=== PATIENT | male | born 1950 | race Caucasian/White ===

== ENCOUNTER 2017-02-07 08:41 | Inpatient (IN) ==
--- NOTE | 2017-02-07 12:21 | Vascular/Endovascular H&P ---
Date of Encounter: 02/07/17 Time of Encounter: 12:00 Assessment and Plan (1) PAD (peripheral artery disease) Current Visit: Yes Status: Acute Patient has severe ischemia of of the left lower extremity that is limb threatening. Plan on urgent bypass graft of left lower extremity and possible thrombectomy of left lower extremity later this afternoon. The potential risks and benefits. Locations and alternatives were reviewed with the patient has . They agreed to proceed. (2) HTN (hypertension) Current Visit: Yes Status: Chronic Patient is under medical treatment for hypertension. Qualifiers: Hypertension type: essential hypertension Qualified Code(s): I10 - Essential (primary) hypertension (3) Tobacco abuse Current Visit: Yes Status: Chronic Patient is on nicotine patches for tobacco abuse. History of Present Illness Chief complaint: Left lower extremity pain HPI: Mr. Downing is a 66 year old male Admitted today for urgent surgery. The patient had originally admitted to my clinic on January 10. He presented with a 6 week history of left calf pain. The patient has been particularly affected as well with pain in the left foot and in the toes. He is also noticed discoloration of the forefoot and toes. He has not had any previous vascular interventions or history of vascular surgery. He has no history of trauma to the left lower extremity. He has significant risk factors of tobacco abuse and hypertension. The patient has been smoking since age 20. The patient had undergone noninvasive testing in early December. This demonstrated an ankle-brachial index of only 0.56 on the left and 1.19 on the right. Patient denies any history of chest pain or chest pressure or arrhythmias. Past Med Surg Social Fam HX - Past Medical History Medical history: hypertension, peripheral artery disease Psychiatric history: no psych history - Past Surgical History Surgical History: no surgical history, other (Patient is status post aortogram with runoff and attempted left superficial femoral artery [employer] angioplasty last Tuesday.) - Social History Smoking Status: Current every day smoker Packs per day: 1 pack per day Smokeless Tobacco Status: No Alcohol use: none Drug use: none Current living situation: Home Activity Level: Independent ambulation Medications and Allergies Ammonium Lactate [Amlactin] 1 each TP BID 02/04/17 [History] Losartan/Hydrochlorothiazide [Hyzaar 100-25 Tablet] 50 mg PO DAILY 02/04/17 [ History] amLODIPine [Norvasc] 5 mg PO BID 02/04/17 [History] 3 Allergy/AdvReac Type Severity Reaction Status Date / Time No Known Allergies Allergy Verified 02/04/17 12:00 All Systems Review: A 10-system review of systems was performed and is negative for pertinent findings except as documented above in the HPI. Exam Vital Signs, Last 4 Hours Temp Pulse Resp BP Pulse Ox 02/07/17 11:40 98.9 F 105 20 174/94 94 General: Present: Conversant, No Apparent Distress, Well developed, Well nourished HEENT: Present: Atraumatic, Normocephaly, Trachea midline Neck: Absent: JVD, Left Carotid bruit, Right Carotid bruit, Midline deformity, Tracheal deviation, Thyromegaly Cardiac: Present: Reg Rate and Rhythm, Normal S1 and S2, No Murmur Lungs: Present: Normal Breath Sounds Neuro: Present: Alert and responsive, No focal deficits noted, Cranial nerves grossly intact Abdomen: Present: Soft, Non-tender. Absent: Masses Vascular: Present: Capillary refill delayed (Diminished capillary refill of left foot), Pulse, absent (No left popliteal or ankle pulse.), Pulse, normal ( Normal right lower extremity evaluation.), Cyanosis (Patient has cyanosis of the left forefoot and toes.), Color/Temperature (Left foot and toes are cool to cold.) Skin: Present: No rashes noted on visualized skin
[2017-02-07] MEDS ORDERED: ceFAZolin 2,000 MG in D5% in Water (Mini-Bag+) 100 ML IVPB ONE (12:28)
[2017-02-07] MEDS ORDERED: Ringers Solution, Lactated 1,000 ML IVC SCH (13:00)
[2017-02-07] MEDS ORDERED: ceFAZolin 2,000 MG in D5% in Water 100 ML IVPB ONE (14:00)
[2017-02-07] MEDS ORDERED: Heparin 1,000 UNITS/500 mL NS 1,500 ML ONE (15:40)
[2017-02-07] MEDS ORDERED: *HR* Rocuronium Bromide 50 MG/5 ML VIAL ONE ×2 (15:41→18:51)
[2017-02-07] MEDS ORDERED: *HR* FentaNYL (PF) 100 MCG/2 ML VIAL ONE (15:41)
[2017-02-07] MEDS ORDERED: Ondansetron 4 MG/2 ML VIAL ONE (15:41)
[2017-02-07] MEDS ORDERED: *HR* Midazolam HCl 2 MG/2 ML VIAL ONE ×2 (15:41→21:34)
[2017-02-07] MEDS ORDERED: *HR* Succinylcholine 200 MG/10 ML VIAL IVP ONE (15:41)
[2017-02-07] MEDS ORDERED: *HR* Propofol 200 MG/20 ML VIAL IVP ONE ×2 (15:41→21:34)
[2017-02-07] MEDS ORDERED: Lidocaine -MPF 2% 2 ML VIAL ONE ×2 (15:41→18:51)
[2017-02-07] MEDS ORDERED: *HR* Remifentanil 2 MG VIAL IVP ONE ×2 (15:57→19:39)
[2017-02-07] MEDS ORDERED: Heparin 1,000 UNITS/500 mL NS 500 ML ONE (16:31)
--- NOTE | 2017-02-07 16:41 | Anesthesia Evaluation PreOp ---
Date of Encounter: 02/07/17 Time of Encounter: 16:39 - Past History Planned Operation: Left Fem-Pop Cardiac History: HTN, Hyperlipidemia, Other (PVD) Pulmonary History: Former smoker, COPD (bronchitis) RESOLUTION REP History: Denies Any Significant HX Other Medical History: Denies Any Significant HX Anesthesia History: No Prior Anesthetic Complications, Past Anesthesia Alcohol Use: none Drug use: none Medications and Allergies Ammonium Lactate [Amlactin] 1 each TP BID 02/04/17 [History] Losartan/Hydrochlorothiazide [Hyzaar 100-25 Tablet] 50 mg PO DAILY 02/04/17 [ History] amLODIPine [Norvasc] 5 mg PO BID 02/04/17 [History] 3 Allergy/AdvReac Type Severity Reaction Status Date / Time No Known Allergies Allergy Verified 02/04/17 12:00 - Meds/Allergy Pre-op Review Medications Reviewed: Yes Allergies Reviewed: Yes Beta Blockers on Current Med List: No Anesthesia Results - Labs Laboratory Tests 01/31/17 01/31/17 01/31/17 08:24 08:24 08:24 WBC 7.7 Hgb 16.4 Hct 48.2 Plt Count 186 PT 10.1 INR 0.9 APTT 27.8 Sodium 140 Potassium 3.8 Chloride 104 Carbon Dioxide 28 BUN 22 Creatinine 1.37 H Est GFR ( Amer) > 60 Est GFR (Non-Af Amer) 52 L BUN/Creatinine Ratio 16 Glucose 127 H Calculated Osmolality 295 Calcium 9.6 - Imaging EKG: report reviewed, image reviewed (SINUS TACHYCARDIA WITH OCCASIONAL ECTOPIC PREMATURE COMPLEXES LEFT ANTERIOR FASCICULAR BLOCK) Anesthesia Exam Last Vital Signs Temp 98.9 F 02/07/17 11:40 Pulse 105 02/07/17 11:40 Resp 20 02/07/17 11:40 BP 174/94 02/07/17 11:40 Pulse Ox 94 02/07/17 11:40 Weight: 114 kg NPO (# of Hours): >> 8 hrs - HEENT Pupil (Motor): Pupils equal, EOMI Mallampati: III Teeth: Poor dentition Oral Opening: Greater than 3 - RESOLUTION REP LOC: Oriented RESOLUTION REP Motor: Normal RUE, Normal LUE, Normal RLE, Normal LLE, Normal Face - Cardiac Rhythm: Regular Murmur: None - Pulmonary Breath Sounds: bilateral Clear Respiratory Effort: Symmetrical Anesthesia Assess/Plan ASA Score: 3 Modified Andrez Scale for Level of Consciousness: Cooperative, oriented, and tranquil Anesthetic Plan: General Monitoring Plan: Standard Monitors, A-Line Recovery Plan: PACU
[2017-02-07] MEDS ORDERED: EPHEDrine 50 MG/ML VIAL ONE (17:31)
[2017-02-07] MEDS ORDERED: *HR* Meperidine 25 MG/ML SYRINGE IVP PRN (18:27)
[2017-02-07] MEDS ORDERED: *HR* Labetalol 20 MG/4 ML SYRINGE IVP PRN ×2 (18:27→22:24)
[2017-02-07] MEDS ORDERED: *HR* HYDROmorphone (PF) 1 MG/ML SYRINGE IVP PRN (18:27)
[2017-02-07] MEDS ORDERED: Ondansetron 4 MG/2 ML VIAL IVP ONE (18:27)
[2017-02-07] MEDS ORDERED: *HR* Promethazine 25 MG/ML VIAL IVP PRN (18:27)
[2017-02-07] MEDS ORDERED: Acetaminophen 650 MG RECTAL SUPP RC ONE (18:45)
[2017-02-07] MEDS ORDERED: *HR* Heparin 5,000 UNIT/ML VIAL ONE ×2 (18:47→18:48)
[2017-02-07] MEDS ORDERED: *HR* Heparin 5,000 UNIT/ML VIAL IVP PRN ×4 (20:42→22:24)
[2017-02-07] MEDS ORDERED: Heparin 25,000 UNIT/500 ML D5W 25,000 UNIT/500 ML MLS IVC SCH (20:45)
--- NOTE | 2017-02-07 21:16 | Operative Note ---
Date of procedure: 02/07/17 Pre-op diagnosis: Limb threatening ischemia left lower extremity Post-op diagnosis: same Procedure: Left femoral to below-knee popliteal artery bypass graft with 6 mm PTFE Distaflo Left femoral, popliteal, and tibial artery catheter thrombectomy Left femoral endarterectomy Complications: none Anesthesia: GETA Surgeon: Jose Clinton Estimated blood loss (cc): 100 Specimen: Left femoral and popliteal thrombus Condition: stable Disposition: PACU Procedure in Detail: History Emiliano Downing is a 66-year-old white male who developed symptoms in his left leg in mid November. He was seen in the vascular surgery clinic in late December. He was recommended to undergo angiography and intervention for severe ischemia of the left leg. The patient came to the angiogram suite last Tuesday. 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 He now comes to surgery as an emergency to help relieve the ischemia of this limb threatening process. Procedure After informed consent was obtained the patient was taken to the operating room. General endotracheal anesthesia was established. The left lower extremity was sterilely prepped and draped. A timeout protocol was observed. Dissection was then made of the left common femoral artery. This was found to have a soft intraluminal process. There is discoloration of the profunda femoris artery and there is no pulse in this area as there was no pulse in the superficial femoral artery. Dissection was then made of the below the knee popliteal artery. Dissection was carried down to selectively controlled anterior tibial and tibial peroneal trunk as well as the [id number] popliteal artery. This vessel was small in size. There were no findings of of pulse. The vessel was relatively soft. A deep subsartorial tunnel was then created and the patient was given 6000 units of heparin intravenously. After 3 minute delay and arteriotomy was made of the popliteal artery. Thrombus was encountered. A 3 and 4 [place] Kathy catheter were then used. It was for past repeatedly in a retrograde fashion with retrieval of a large amount of both acute and chronic clot and atherosclerotic material. Only a small amount of antegrade bleeding was identified. The catheter would not pass into the common femoral artery. The 3 [place] Kathy catheter was then passed distally into the tibial system. A small amount of clot was removed and backbleeding was established. The distal common femoral and proximal superficial femoral artery was then opened with 11 blade knife and Muhammad scissors. Fresh and chronic thrombus was identified here. Thrombus was also identified and the profunda femoris system. Again a 3 and 4 [place] Kathy catheter were utilized to thrombectomize these vessels. A large clot area was identified in the distal common femoral artery. This was endarterectomized and once this was done there was excellent antegrade flow. The 3 and 4 [place] Kathy catheters however would not pass for the length of the superficial femoral artery indicating there was some high-grade stenotic lesion. Therefore a bypass graft was necessary. A 6 mm PTFE Distaflo graft was selected. The distal anastomosis was made through the area of the arteriotomy of the popliteal artery for the thrombectomy. 6-0 Prolene suture was used for this anastomosis. Attention was then directed to the proximal anastomosis. In the area of the arteriotomy over the common femoral and endarterectomized area and superficial femoral the proximal anastomosis was fashioned. This was end to side configuration. 6-0 Prolene suture was used for this. After appropriate backbleeding and flushing the graft was opened. Pulsatile flow was achieved through the graft and into the tibial system. The patient had excellent strong biphasic flow in the tibial peroneal trunk and anterior tibial artery. No Doppler signals are identified at the foot which is thought secondary to the long indwelling ischemia and cold temperatures. Therefore the patient was started on intravenous heparin drip which will be carried overnight to allow reperfusion to occur. The wounds were then irrigated and hemostasis achieved. The wounds were then closed in layers using absorbable suture. There were no intraoperative complications. Patient was extubated in the operating room. He was taken to the recovery room in stable condition.
[2017-02-07] MEDS ORDERED: Acetaminophen IV 1,000 MG/100 ML INFUS..BTL ONE (21:56)
[2017-02-07] MEDS ORDERED: Naloxone 0.4 MG/ML INJ IVP PRN (22:24)
[2017-02-07] MEDS ORDERED: *HR* Morphine 2 MG/ML SYRINGE IVP PRN (22:24)
[2017-02-07] MEDS ORDERED: Ondansetron 4 MG/2 ML VIAL IVP PRN (22:24)
[2017-02-07] MEDS ORDERED: Acetaminophen 325 MG TABLET PO PRN (22:24)
[2017-02-07] MEDS ORDERED: cloNIDine HCl 0.1 MG TABLET ONE (22:27)
[2017-02-07] MEDS ORDERED: Gabapentin 300 MG CAPSULE ONE (22:29)
[2017-02-07] MEDS: *HR* Morphine 2 MG/ML SYRINGE IVP PRN (23:10)
[2017-02-07] MEDS: Heparin 25,000 UNIT/500 ML D5W 25,000 UNIT/500 ML MLS IVC SCH (23:33)
[2017-02-07] MEDS: ceFAZolin 2,000 MG in D5% in Water 100 ML IVPB SCH (23:34)
--- NOTE | 2017-02-07 23:42 | Anesthesia Evaluation Post Op ---
Date of Encounter: 02/07/17 Time of Encounter: 22:45 - Vital Signs Vital Signs: Vital Signs/O2 Sat/Glucose, Most Current Temp Pulse Resp BP Pulse Ox 02/07/17 22:48 97.5 F L 108 16 115/83 96 02/07/17 22:29 98.6 F 99 18 139/75 97 02/07/17 22:18 98 18 134/74 97 02/07/17 22:08 99.2 F 103 12 128/71 97 02/07/17 21:58 108 20 124/68 96 02/07/17 21:48 115 20 151/86 98 02/07/17 21:38 98.5 F 113 20 158/75 99 - Lungs Lungs: Clear Ascult./Percussion - Airway Airway: Non-obstructed - Cardiovascular Regular Rate - Mental Status Mental Status: Alert & Oriented, Answers Appropriately - Pain Pain Scale: 5 Pain Scale used: Numeric (1 - 10) - Nausea Vomiting Nausea Vomiting: Not Present - Hydration Hydration: Tolerates oral liquids, [place] catheter - Discharge PostOp Status: Transfer Patient to floor Anes Supervising Prov Stmt: PT seen/evaluated, VSS And pt has met criteria for discharge to floor. - MD Domenico
[2017-02-07] MEDS: *HR* Midazolam HCl 2 MG/2 ML VIAL IV PRN (23:57)
[2017-02-08] MEDS: *HR* HYDROcodone/Acet 5/325 mg TABLET PO PRN ×2 (00:36→06:51)
[2017-02-08] MEDS: *HR* Morphine 2 MG/ML SYRINGE IVP PRN ×3 (01:10→07:42)
[2017-02-08] MEDS: *HR* Midazolam HCl 2 MG/2 ML VIAL IV PRN (01:29)
[2017-02-08 05:03] LABS: Basophils % 0.1 %; Hematocrit 39.9 % (37.5-50.1); Hemoglobin 13.5 g/dL (12.9-16.9); Immature Granulocytes % 0.5 % (0-4); Lymphocytes # 0.9 K/mcL (0.6-4.6); Lymphocytes % 6.6 %; Mean Corpuscular HGB Conc 33.8 g/dL (31.6-35.5); Mean Corpuscular Hemoglobin 31.4 pg (28.0-33.3); Mean Corpuscular Volume 92.8 fL (83.0-100.0); Mean Platelet Volume 9.5 fL (9.4-12.4); Monocytes # 0.6 K/mcL (0.0-1.3); Monocytes % 4.8 %; Neutrophils # 11.6 K/mcL (1.6-8.9); Platelet Count 152 K/mcL (140-400); Red Cell Distribution Width 12.6 % (11.5-14.5)
[2017-02-08 05:04] LABS: Activated Partial Thrombo Time 35.2 Seconds (26.0-36.0)
[2017-02-08 05:13] LABS: BUN/Creatinine Ratio 17 (6-26); Blood Urea Nitrogen 24 mg/dL (8-26); Calcium 8.5 mg/dL (8.6-10.8); Carbon Dioxide 24 mEq/L (19-29); Chloride 104 mEq/L (98-109); Creatine Kinase 663 Units/L (30-200); Glucose 174 mg/dL (70-99); Osmolality,Calculated 296 (280-300); Potassium 4.1 mEq/L (3.5-4.5); Sodium 139 mEq/L (136-145); eGFR For African Americans > 60 (> 60); eGFR For Non-African Americans 51 (> 60)
[2017-02-08] MEDS: amLODIPine 5 MG TABLET PO SCH ×3 (07:41→20:50)
[2017-02-08] MEDS: ceFAZolin 2,000 MG in D5% in Water 100 ML IVPB SCH ×2 (07:41→17:24)
[2017-02-08] MEDS: Losartan/HCTZ 50-12.5 TABLET PO SCH ×2 (07:41→07:46)
[2017-02-08] MEDS: Ammonium Lactate 30 APPL/225 GM BOTTLE TP SCH ×2 (07:42→20:50)
--- NOTE | 2017-02-08 08:07 | Vascular/Endovas Progress Note ---
Date of Encounter: 02/08/17 Time of Encounter: 08:04 - Assessment and plan (1) PAD (peripheral artery disease) Current Visit: Yes Status: Acute Patent left femoral to below-knee popliteal artery bypass graft. After medical improvement in perfusion of left lower extremity. Distal left forefoot and toes remained ischemic. We'll continue heparin drip for today. Patient may be up out of bed. Begin physical therapy. (2) HTN (hypertension) Current Visit: Yes Status: Chronic Patient is under medical treatment for hypertension. Qualifiers: Hypertension type: essential hypertension Qualified Code(s): I10 - Essential (primary) hypertension (3) Tobacco abuse Current Visit: Yes Status: Chronic Patient is on nicotine patches for tobacco abuse. - Subjective Interval history: The patient is postoperative day #1 following emergency thrombectomy and bypass for left lower extremity ischemia. Patient complains of pain in the first and fifth toe of the left foot. The calf is feeling better and is warm. The patient has been at bedrest overnight. Vital Signs, Last 4 Hours Pulse 02/08/17 07:51 74 - Physical Examination General: Present: Conversant, No Apparent Distress HEENT: Present: Atraumatic Neck: Absent: JVD Cardiac: Present: Reg Rate and Rhythm Lungs: Present: Decreased breath sounds Neuro: Present: Alert and responsive Vascular: Present: Other (Patient has Doppler signals 3 at the left ankle. I do not find a Doppler signal between the toes of the left foot. The left calf and foot and ankle are warm and pink. The 5 left toes remain discolored and cool to touch. The patient does have sensation and motion of the toes and forefoot.) - VTE Documentation of Mechanical Device: Intermittent pneumatic compression device Results 02/08/17 04:20 02/08/17 04:20 Lab Results, Last 24 hours 02/08/17 02/08/17 02/08/17 04:20 04:20 04:20 WBC 13.2 H Hgb 13.5 Hct 39.9 Plt Count 152 INR 1.0 APTT 35.2 Sodium 139 Potassium 4.1 Chloride 104 Carbon Dioxide 24 BUN 24 Creatinine 1.40 H Glucose 174 H Calcium 8.5 L Consult Discharge Plan - Plan Referrals: Brady Simons MD [Primary Care Provider] -
[2017-02-08] MEDS ORDERED: 0.9 % Sodium Chloride 1,000 ML IVC SCH (17:45)
[2017-02-08] MEDS ORDERED: Nicotine 21 MG PATCH.TD24 TD SCH ×2 (18:00)
[2017-02-08] MEDS: Heparin 25,000 UNIT/500 ML D5W 25,000 UNIT/500 ML MLS IVC SCH (18:54)
[2017-02-08] MEDS ORDERED: Ipratropium/Albuterol Neb 3 ML IH SCH (20:00)
[2017-02-09] MEDS: *HR* Morphine 2 MG/ML SYRINGE IVP PRN (03:09)
[2017-02-09] MEDS: Ammonium Lactate 30 APPL/225 GM BOTTLE TP SCH (08:19)
[2017-02-09] MEDS: *HR* HYDROcodone/Acet 5/325 mg TABLET PO PRN ×2 (08:24→14:28)
[2017-02-09] MEDS: amLODIPine 5 MG TABLET PO SCH (08:24)
[2017-02-09] MEDS: Losartan/HCTZ 50-12.5 TABLET PO SCH (08:25)
[2017-02-09] MEDS: Heparin 25,000 UNIT/500 ML D5W 25,000 UNIT/500 ML MLS IVC SCH (10:01)
[2017-02-09 11:17] VITALS: BP 115/61
--- NOTE | 2017-02-09 16:27 | Electrocardiograph Report ---
[address] [address] Test Date: 2017-02-07 Pat Name: Emiliano Downing Department: 110 Room: 2N06 Gender: M Chief Clinical Officer: SHIRA : 1950 Requested By: Jose Clinton Order Number: [id number] Reading MD: Milo Arias MD Measurements Intervals [place] Rate: 103 P: 146 DC: 164 QRS: -27 QRSD: 108 T: 148 QT: 336 QTc: 396 Interpretive Statements SINUS RHYTHM LEFT ATRIAL ENLARGEMENT Electronically Signed On 02-09-2017 16:26:05 EDT by Milo Arias MD
[2017-02-09] MEDS ORDERED: *HR* Rivaroxaban 10 MG TABLET PO SCH (17:00)
--- NOTE | 2017-02-09 17:05 | Discharge Summary ---
Date of Encounter: 02/09/17 Time of Encounter: 16:58 - Discharge Diagnosis (1) PAD (peripheral artery disease) Priority: Primary Status: Acute Comments: Severe ischemia of left lower extremity. Patient was unresponsive to endovascular manipulations. Patient underwent extensive bypass grafting and thrombectomy. A Schnidt had restitution of Doppler signals and a warm left foot. (2) HTN (hypertension) Priority: Secondary Status: Chronic Comments: Patient is under medical treatment for hypertension Qualifiers: Hypertension type: essential hypertension Qualified Code(s): I10 - Essential (primary) hypertension (3) Tobacco abuse Priority: Secondary Status: Chronic Comments: The patient was instructed to avoid all tobacco use and continue use of nicotine patches. - Discharge Medications Prescriptions: HYDROcodone/Acet 5/325 mg [[place] 5-325 mg] 1 tab PO Q6HR PRN #14 tablet PRN Reason: Moderate Pain Nicotine Patch [Nicoderm] 21 mg TD QPM #30 patch.td24 Rivaroxaban [Xarelto] 20 mg PO HS #30 tablet Home Medications: Ammonium Lactate [Amlactin] 1 each TP BID 02/04/17 [History] amLODIPine [Norvasc] 5 mg PO BID 02/04/17 [History] Losartan/HCTZ [Hyzaar 50-12.5 Tablet] 1 tab PO DAILY 02/08/17 [History] HYDROcodone/Acet 5/325 mg [[place] 5-325 mg] 1 tab PO Q6HR PRN #14 tablet [Rx] Nicotine Patch [Nicoderm] 21 mg TD QPM #30 patch.td24 02/09/17 [Rx] Rivaroxaban [Xarelto] 20 mg PO HS #30 tablet 02/09/17 [Rx] Allergies/Adverse Reactions: 3 Allergy/AdvReac Type Severity Reaction Status Date / Time No Known Allergies Allergy Verified 02/04/17 12:00 Procedures/tests Complete & Pending: Procedures Performed prior 72 hours Category Date Time Status ECG 12 lead ECG [ECG] Routine Y 02/07/17 11:41 Completed Date of admission: 02/07/17 13:48 Primary care physician: Brady Simons MD Consults: 02/08/17 08:08 Consult to Physical Therapy [CONS] Routine Comment: Evaluate, develop and implement POC Reason for Consult: Patient is status post left lower extremity bypass graft for severe ischemia. Assist with range of motion and activities of daily living and ambulation. 02/08/17 18:17 OT [Consult to Occupational Therapy] [CONS] Routine Comment: Evaluate, develop and implement POC Reason for Consult: eval and develop tx plan s/p surgical procedure Procedure(s) Performed: Left femoral to below-knee popliteal artery bypass graft with femoral and popliteal and tibial artery thrombectomies Discharging clinician: Jose Clinton Anticipated date of discharge: 02/09/17 - Patient Status Disposition: Home, Self-Care Condition: Good Functional capacity at discharge: uses cane/walker Overall status at discharge: patient is progressing back to baseline - Discharge Instructions Follow Up With: Brady Simons MD [Primary Care Provider] - Jose Clinton MD [Partnered Physician] - 03/07/17 8:45 am (THIS APPOINTMENT IS IN [place]) Rosa Howard CNP [Advanced Practice Nurse] - 02/14/17 2:00 pm Additional Instructions: Keep surgical incisions dry for total of 5 days following surgery. Elevate left lower extremity while sitting Resume usual home medications tomorrow. Continue range of motion exercises while at rest. Patient may be weightbearing. Patient may use stairs. Patient is to use walker to assist with ambulation until completely independent. - Diet and Activity Activity: ambulate only with your walker, increase activity as tolerated Diet: low fat, low cholesterol - Hospital Course Hospital course: Mr. Downing is a 66 year old male With a 10 week history of left lower extremity and left foot pain. He is found to have an occluded left superficial femoral and popliteal artery. He was unresponsive to endovascular manipulation. He now comes for urgent bypass grafting. The patient was taken to surgery on the afternoon of Tuesday. He underwent a extensive bypass graft and multiple thrombectomies. The patient restitution of Doppler signals and warm left foot. Time spent discussing smoking cessation with patient: 3 to 10 minutes - Time Spent with Patient Total time spent providing and/or coordinating discharge services: Exam General: Present: Conversant, No Apparent Distress HEENT: Present: Atraumatic Cardiac: Present: Reg Rate and Rhythm, Normal S1 and S2 Lungs: Present: Normal Breath Sounds Neuro: Present: Alert and responsive, No focal deficits noted Abdomen: Present: Soft Vascular: Present: Color/Temperature (Left foot is warm and pink. He has mild edema of the lower leg and foot secondary to reperfusion effect.), Surgical incisions (Surgical incisions are clean and dry and healing well.), Other ( Patient has Doppler signals 3 at the left ankle and also Doppler signals between the first and second toe webspace.) Skin: Present: No rashes noted on visualized skin - VTE Documentation of Mechanical Device: Intermittent pneumatic compression device
== END 2017-02-09 17:30 | disposition home or self-care (01) | DRG 253 ==
LOC: 2NNU
PROVIDERS: ADMIT Surgery Vascular Surgery; ATTEND Surgery Vascular Surgery